=== PATIENT | male | born 1955 | race Caucasian/White ===

== ENCOUNTER → 2020-11-03 | Outpatient (CLI) | payer BC ==
[~2020-11-03] MED LIST: AMLO-186 PO; FLUT1BLS3 IH; HYDR-2765 PO; LISI-130 PO; TIZA4TAB2 PO; VENTOLIN HFA18 GM INH
--- NOTE | 2020-11-03 15:04 | EKG ---
[facility] [address] [place] [address] Test Date: 2020-11-03 Test Time: 14:57:12 Pat Name: WOLF ROGERS Department: Room: Gender: M Senior Mortgage Underwriter: [facility] [place] : 1955 Requested By: FADUMO ARGUETA Order Number: [id number] Reading MD: Sadi Galeano MD Measurements Intervals [place] Rate: 67 P: 59 MD: 152 QRS: -39 QRSD: 86 T: 20 QT: 450 QTc: 479 Interpretive Statements SINUS RHYTHM LAD Electronically Signed On 11-04-2020 12:09:05 PROMOTION OFFICER by Sadi Galeano MD
[2020-11-03 16:11] LABS: ALBUMIN 3.8 g/dL (3.4-5.0); ALBUMIN/GLOBULIN RATIO 1.2 (1.0-1.7); CALCIUM 8.9 mg/dL (8.5-10.1); GFR 75.5; POTASSIUM 4.9 mmol/L (3.5-5.1); TOTAL BILIRUBIN 0.6 mg/dL (0.2-1.0)
[2020-11-03 16:50] LABS: BASO # 0.1 x10^3/uL (0.0-0.2); BASO % 1 % (0-3); EOS # 0.1 x10^3/uL (0.0-0.7); EOS % 1 % (0-3); HEMOGLOBIN 17.7 g/dL (13.0-17.5); LYMPH # 1.5 x10^3/uL (1.0-4.8); LYMPH % 22 % (24-48); MEAN CORPUSCULAR HEMOGLOBIN 34 pg (25-35); MEAN CORPUSCULAR HGB CONC 34 g/dL (31-37); MEAN CORPUSCULAR VOLUME 100 fL (79-100); MONO # 0.5 x10^3/uL (0.0-1.1); MONO % 7 % (0-9); NEUT # 4.7 x10^3/uL (1.8-7.7); NEUT % 68 % (31-73); PLATELET COUNT 246 x10^3/uL (140-400); RED BLOOD COUNT 5.19 x10^6/uL (4.30-5.70); RED CELL DISTRIBUTION WIDTH 14.6 % (11.5-14.5); WHITE BLOOD COUNT 6.9 x10^3/uL (4.0-11.0)
== END ==
LOC: SURGPAT 15:19
PROVIDERS: ATTEND Neurological Surgery
DX: Z01.818 Encounter for other preprocedural examination (principal); M51.16 Intervertebral disc disorders with radiculopathy, lumbar region; Z86.79 Personal history of other diseases of the circulatory system
CPT/HCPCS: 36415; 80053; 85025; 87641; 93005

== ENCOUNTER → 2020-11-04 | Outpatient (CLI) | payer BC | LOC: LAB 12:16 | PROVIDERS: ATTEND Neurological Surgery | DX: Z01.812 Encounter for preprocedural laboratory examination (principal); M51.16 Intervertebral disc disorders with radiculopathy, lumbar region; Z20.822 Contact with and (suspected) exposure to COVID-19 | CPT/HCPCS: U0003 ==

== ENCOUNTER → 2020-11-07 | Day surgery (SDC) | payer BC ==
[~2020-11-07] VITALS: Ht 177.8 cm; Wt 90.3 kg
[~2020-11-07] MED LIST changes: +BACITRACIN 50,000 UNIT in IV NORMAL SALINE 1000ML BAG 1,000 ML IRR ONE; +BUPIVACAINE-EPI 0.5%-1:200000 MPF 30 ML VIAL. ONE; +DEXAMETHASONE SOD PHOS 4 MG/ML VIAL ONE; +GELATIN SPONGE SIZE 100. ONE; +HYDROcodone/APAP 7.5/325MG 1 TAB TABLET PO PRN; +HYDROmorphone 2 MG/ML VIAL IVP PRN; +IV RINGERS,LACTATED 1000ML 1,000 ML IV SCH; +KETOROLAC 60 MG/2 ML VIAL. ONE; +LIDOCAINE 2% PF 5 ML VIAL. ONE; +MIDAZOLAM HCL/PF 2 MG/2 ML VIAL. ONE; +MORPHINE SULFATE 2 MG/ML VIAL. IVP PRN; +ONDANSETRON PF 4 MG/2 ML VIAL. ONE; +PHENYLEPHRINE 10 MG/ML VIAL. ONE; +PROCHLORPERAZINE 10 MG/2 ML VIAL. IVP PRN; +PROPOFOL 10 MG/ML (20ML) VIAL. IV ONE; +PROPOFOL 100 ML IV ONE; +REMIFENTANIL 2 MG VIAL. IV ONE; +ROCURONIUM 50 MG/5 ML VIAL. ONE; +THROMBIN TOPICAL 20,000 UNIT SPRAY.SYRN KIT TP ONE; +ePHEDrine PF IN SALINE 50 MG/10 ML SYRINGE. IV ONE; +fentaNYL PF VIAL 100 MCG/2 ML VIAL IVP PRN; +fentaNYL PF VIAL 100 MCG/2 ML VIAL ONE
--- NOTE | 2020-11-07 06:49 | HP ---
ADMIT DATE: 11/07/2020 PREOPERATIVE HISTORY AND PHYSICAL DATE OF ADMISSION: 11/07/2020. HISTORY OF PRESENT ILLNESS: The patient is a pleasant 65-year-old man who is having difficulty with severe back pain along with pain that radiates to his right anterior thigh and right hip. He has had epidural steroid injections, which helped his right leg pain, but his back pain remains very severe. Lying down, seems to help him with his pain. He takes hydrocodone and tizanidine. I initially saw him for this problem in 07/2020, but he reports that the problem began around 05/2020 without inciting event. PAST MEDICAL HISTORY: Arthritis, COPD, hypertension, MRSA infection. PAST SURGICAL HISTORY: Shoulder surgery in 1989. CURRENT MEDICATIONS: [place], amlodipine, lisinopril, tizanidine. ALLERGIES: PENICILLIN. FAMILY HISTORY: Cancer, seizures, heart disease, hypertension. SOCIAL HISTORY: . Smokes. Does not drink alcohol. REVIEW OF SYSTEMS: A 12-point review of systems was performed and is noncontributory except that mentioned above. PHYSICAL EXAMINATION: GENERAL: Alert, pleasant, in no acute distress. HEAD: Normocephalic, atraumatic. SKIN: Warm and dry. MUSCULOSKELETAL: Lumbar paraspinal muscle bulk is normal, restricted range of motion of the lumbar spine, [id number] tenderness of the lower lumbar spine with palpation, normal range of motion of the lower extremities bilaterally. EXTREMITIES: No clubbing, cyanosis or edema. NEUROLOGIC: Alert and oriented x 3, normal recent and remote memory. Strength is 5/5 in the lower extremities bilaterally except for right hip flexors, which are 4/5, sensory was intact to light touch in the lower extremities bilaterally. Reflexes were present and symmetric in the lower extremities bilaterally except for an absent right knee jerk, negative straight leg raising bilaterally, normal gait. IMAGING: I reviewed a lumbar MRI scan. On that study, there is a herniated disk with an inferior fragment at L1-L2 on the right. ASSESSMENT AND PLAN: At this point, he has improved with lumbar epidural steroids somewhat; however, he continues to have very severe back pain and feelings of weakness in his right leg. I have told him that at this point, I was willing to operate on him performing a lumbar microdiskectomy L1-L2 removing a very large inferior fragment in hopes that it would help him with his severe pain. He understands the surgery, the risk and the expected postoperative course. He would like to go ahead. FADUMO ARGUETA MD DR: DONI/neris JOB#: [id number] / [id number] TATYANA
--- NOTE | 2020-11-07 12:43 | DISCH ---
DISCHARGE INSTRUCTIONS Condition on Discharge Condition on Discharge: Stable Activity After Discharge Activity Instructions for Disc: Activity as tolerated, Avoid exertion Other activity instructions: no driving for a week Bathing Instructions: Shower-keep dressing dry Lifting Instructions after Dis: No pulling or pushing, Do not lift >10 pounds Diet after Discharge Additional Diet Restrictions: resume home diet Wound Incision Care Wound/Incision Care: Ice to area for comfort Other wound/incision instructi: may remove dressing in 48 hours if dry then may shower, no soaking Contacting the after DC Call your doctor for: Concerns you may have Follow-Up Follow up with: Dr. Argueta's nurse in 2 weeks [phone] FADUMO ARGUETA MD Nov 07, 2020 12:43
[2020-11-07 13:50] VITALS: BP 138/70
--- NOTE | 2020-11-11 14:08 | PATHOLOGY ---
[facility] Accession Number: [id number] . 01 Material submitted: . vertebral column - LUMBAR DISC AND DECOMPRESSION . 02 Diagnosis: Segments of fibrocartilaginous tissue and bone, lumbar disc and decompression: - Degenerative changes of fibrocartilaginous tissue. ([facility] 11/11/2020) [facility] 11/11/2020 0922 Local . 02 Comment: There is no evidence of an acute inflammatory process or malignancy. ([facility] 11/11/2020) . 02 Electronically signed: . Clay Salguero MD, Pathologist NPI- [id number] . 01 Gross description: . The specimen is received in formalin, labeled "Eric Siddiqui, lumbar disc and decompression". Received are multiple segments of pink-schroeder gritty tissue admixed with small fragments of bone measuring 4.5 x 3.9 x 0.9 cm in aggregate dimensions. The specimen is submitted representatively in cassette A1, following light decalcification. ([facility]; 11/09/2020) QAC/QAC 11/11/2020 0920 Local . 02 Pathologist provided ICD-10: M51.36 . 02 CPT . 617996, [id number] Specimen Comment: A courtesy copy of this report has been sent to [phone] Specimen Comment: Report sent to Performed at: 01 [facility] [address], [place] [id number] MD Marlon Mosqueda MD Phone: [phone] Performed at: 02 [facility] [address] [place], [place] [id number] MD Clay Salguero MD Phone: [phone]
--- NOTE | 2020-11-25 10:20 | OP ---
DATE OF SURGERY: 11/07/2020 PREOPERATIVE DIAGNOSES: Herniated disk, L1-L2, right, with inferior disk fragment and severe lumbar radiculopathy. POSTOPERATIVE DIAGNOSES: Herniated disk, L1-L2, right, with inferior disk fragment and severe lumbar radiculopathy. OPERATION PERFORMED: Lumbar laminectomy L1-L2 with extensive inferior exposure and removal of herniated disk and decompression of dura and nerve root. The operation was done with multimodality monitoring including EMG, SSEP. We also used fluoroscopy, microscopic dissection. OPERATIVE INDICATIONS: The patient is a pleasant 65-year-old who developed severe intractable back and right leg pain which failed conservative measures. On imaging studies, he had above-mentioned findings and I recommended lumbar microsurgery. He understood the surgery and the risks, the technique and he wished to go ahead. DESCRIPTION OF PROCEDURE: Following general endotracheal anesthesia, the patient was positioned prone on a Les table. Lumbar region prepped and draped in standard fashion. DANA hose and AV impulse boots were applied for DVT prophylaxis. A microscope was draped. Fluoroscopy was draped and brought into the field. Using fluoroscopic guidance, incision was made in the midline from mid L1 to mid L2. I dissected down through skin and subcutaneous tissue, reflected the paraspinal muscles and placed a [place] microdisk retractor. I brought in the microscope and using the high speed air drill, I drilled a very generous hemilaminotomy and also a partial foraminotomy. I then trimmed away thickened ligamentum flavum, peeled this down and reflected the nerve root medially and there was a small disk fragment, which was free and beneath the root, just beneath the disk space at L1-L2 on the right and I removed this with a micropituitary. I felt less than I thought I would find so I continued my bone work inferiorly extensively and then to fully decompress the region, I carried my dissection medially and across the midline from the right side and fully decompressed the entire region. I then gently retracted the nerve root and worked inferiorly. In fact, I went into the axilla of the root and there, I found another small disk fragment, which I removed and fully decompressed the entire region. The disk space was flat and largely empty and I did enter the disk. There was a great deal of disk material within the disk space. I irrigated copiously with antibiotic solution at this point. I used bone wax for any bone bleeding throughout the case as well as bipolar cautery where necessary, but hemostasis was never a problem. I assured myself that the root and the dura were very free and there were no retained fragments. I irrigated copiously. I closed the wound in layers with absorbable suture and skin was closed with 4-0 subcuticular stitch. I felt the surgery went very well. FADUMO ARGUETA MD DR: RAFAEL/neris JOB#: [id number] / [id number]
== END | disposition home or self-care (01) ==
LOC: SURG 06:48
PROVIDERS: ATTEND Neurological Surgery
DX: M51.16 Intervertebral disc disorders with radiculopathy, lumbar region (principal); I10 Essential (primary) hypertension; J44.9 Chronic obstructive pulmonary disease, unspecified; Z87.891 Personal history of nicotine dependence; Z79.899 Other long term (current) drug therapy; Z98.890 Other specified postprocedural states; Z88.1 Allergy status to other antibiotic agents
CPT/HCPCS: 63030; 88304; 88311; 97161; A4364; A4930; A6254; A6258; J0690; J1100; J1885; J2250; J2370; J2405; J2704; J3010; J7030; 76000; A4222; A4452; A4657